=== PATIENT | male | born 1980 | race Caucasian/White ===

== ENCOUNTER 2016-05-24 01:34 | Emergency (ER) | payer OTHER ==
[~2016-05-24] VITALS: Ht 193 cm; Wt 130.5 kg
[~2016-05-24 01:34] MED LIST: ACYCLOVIR400 MG PO; ADVIL PM1 TABLET PO; ANAPROX DS550 M1 PO; AUGMENTIN875 MG PO; CIPRO500 MG PO; CLARITIN10 M3 PO; CLONAZEPAM1 MG PO; COLACE100 MG PO; DILAUDID2 MG PO; DILAUDID4 MG PO; ENDOCET 5-3251 EACH; ESCITALOPRAM OX20 MG PO; FENTANYL1 EAC5; FIORICET WI1 CAPSULE PO; FIORICET,ESG1 TABLET PO; FLEXERIL10 MG PO; FLOMAX0.4 MG PO; HYDROCHLOROTHIA25 MG PO; IBUPROFEN600 MG PO; INDOCIN25 MG PO; KEFLEX500 MG PO; LEXAPRO20 MG PO; LIDOCAINE20 MG/1 M5 PO; LODINE200 MG PO; LORTAB 5-325 M1 EACH PO; LYRICA100 MG PO; MEDROL DOSEPAK4 MG PO; MONTELUKAST SOD10 MG PO; MOTRIN IB200 MG; MOTRIN600 MG PO; MOTRIN800 MG PO; NAPROSYN500 MG PO; NAPROXEN500 MG PO; NORCO 5/3251 TABLET PO; PEN-VEE K,VEET500 MG PO; PERCOCET 10/1 TABLET PO; PERCOCET 5/31 TABLET PO; PHENERGAN25 MG PR; POTASSIUM CITR10 MEQ PO; PREDNISONE20 MG PO; PROMETHAZINE HC25 M1 PO; PYRIDIUM100 MG PO; SINGULAIR10 MG PO; SLEEP AID25 M1 PO; SOMA350 MG PO; TAMSULOSIN HCL0.4 MG PO; TORADOL10 MG PO; TYLENOL WITH C1 EACH PO; UROCIT-K15 MEQ PO; VICODIN 5-3001 EACH PO; ZOFRAN ODT4 MG PO; ZOFRAN ODT8 MG PO; ZOFRAN4 MG PO; ZOFRAN8 MG PO
[2016-05-24 01:54] LABS: HEMATOCRIT 44.4 % (38.0-50.0); MCH 29.3 PG (29.0-34.0); MCHC 34.5 G/DL (30.0-36.0); MCV 85.1 FL (86-99); MEAN PLAT.VOLUME 9.3 uM^3 (9.0-12.4); PLATELET COUNT 334 K/uL (156-360); RBC DIS.WIDTH-CV 14.6 % (11.8-14.6); RED BLOOD COUNT 5.22 M/uL (4.00-5.50); WHITE BLOOD COUNT 10.3 K/uL (4.1-10.2)
[2016-05-24 02:05] LABS: CHLORIDE 106 mEq/L (99-109); POTASSIUM 3.6 mEq/L (3.7-5.4); SODIUM 143 mEq/L (136-147)
[2016-05-24 02:07] LABS: GLUCOSE 112 mg/dL (70-99)
[2016-05-24 02:08] LABS: ANION GAP 12 MEQ/L (2-14)
[2016-05-24 02:11] LABS: GFR ESTIMATE (CALCULATED) > 59 mL/min/
[2016-05-24 02:12] LABS: UREA NITROGEN (BUN) 24 mg/dL (9-23)
[2016-05-24 02:27] LABS: ADD MIUA? YES; BILIRUBIN NEGATIVE; BLOOD NEGATIVE; COLOR YELLOW ((YELLOW)); GLUCOSE (STRIP) NEGATIVE; KETONES NEGATIVE; LEUKOCYTES NEGATIVE; NITRITE NEGATIVE; PROTEIN (STRIP) NEGATIVE; SPECIFIC GRAVITY 1.033 (1.000-1.030); UROBILINOGEN 0.2 MG/DL (0.2-1.0)
[2016-05-24 02:43] LABS: EPITHELIAL CELLS NONE SEEN; MUCUS NONE SEEN; RED BLOOD CELLS NONE SEEN /HPF (0-5); WHITE BLOOD CELLS 0-5 /HPF (0-5)
[2016-05-24 02:44] LABS: BACTERIA 1+; CASTS NONE SEEN /LPF; CRYSTALS NONE SEEN; UCUL ADDED? NO
[2016-05-24] MEDS ORDERED: ZOFRAN ODT4 MG PO (04:01)
[2016-05-24] MEDS ORDERED: PERCOCET 5/31 TABLET PO (04:01)
[2016-05-24 04:30] VITALS: BP 145/92
== END 2016-05-24 04:48 | disposition home or self-care (01) ==
LOC: EME 01:34
DX: N20.0 Calculus of kidney (principal); Z87.442 Personal history of urinary calculi; K21.9 Gastro-esophageal reflux disease without esophagitis; Z98.1 Arthrodesis status; Z88.8 Allergy status to other drugs, medicaments and biological substances; Z88.5 Allergy status to narcotic agent; F17.200 Nicotine dependence, unspecified, uncomplicated
CPT/HCPCS: 74176; 80048; 81003; 85027; 99281; 99284; J1885

== ENCOUNTER 2016-07-22 15:34 | Emergency (ER) | payer OTHER ==
[~2016-07-22] VITALS: Ht 193 cm; Wt 129.9 kg
[2016-07-22 16:18] LABS: HEMATOCRIT 46.1 % (38.0-50.0); MCH 29.3 PG (29.0-34.0); MCV 88.8 FL (86-99); MEAN PLAT.VOLUME 9.2 uM^3 (9.0-12.4); PLATELET COUNT 366 K/uL (156-360); RBC DIS.WIDTH-CV 12.9 % (11.8-14.6); RBC DIS.WIDTH-SD 42.3 % (39-53); RED BLOOD COUNT 5.19 M/uL (4.00-5.50); WHITE BLOOD COUNT 8.8 K/uL (4.1-10.2)
[2016-07-22 16:26] LABS: CHLORIDE 108 mEq/L (99-109); POTASSIUM 4.4 mEq/L (3.7-5.4); SODIUM 144 mEq/L (136-147)
[2016-07-22 16:28] LABS: GLUCOSE 93 mg/dL (70-99)
[2016-07-22 16:29] LABS: ANION GAP 10 MEQ/L (2-14)
[2016-07-22 16:30] LABS: TOTAL BILIRUBIN 0.4 mg/dL (0.0-1.0)
[2016-07-22 16:31] LABS: ALKALINE PHOSPHATASE 52 IU/L (3-129)
[2016-07-22 16:32] LABS: GFR ESTIMATE (CALCULATED) > 59 mL/min/
[2016-07-22 16:33] LABS: UREA NITROGEN (BUN) 18 mg/dL (9-23)
[2016-07-22 17:16] LABS: ADD MIUA? NO; BILIRUBIN NEGATIVE; BLOOD NEGATIVE; COLOR YELLOW ((YELLOW)); GLUCOSE (STRIP) NEGATIVE; KETONES NEGATIVE; LEUKOCYTES NEGATIVE; NITRITE NEGATIVE; PROTEIN (STRIP) NEGATIVE; UCUL ADDED? NO; UROBILINOGEN 0.2 MG/DL (0.2-1.0)
[2016-07-22] MEDS ORDERED: ZOFRAN4 MG PO (18:34)
[2016-07-22] MEDS ORDERED: TORADOL10 MG PO (18:34)
[2016-07-22 18:46] VITALS: BP 140/92
== END 2016-07-22 18:47 | disposition home or self-care (01) ==
LOC: EME 15:34
DX: R10.9 Unspecified abdominal pain (principal); R11.0 Nausea; R35.0 Frequency of micturition; Z87.442 Personal history of urinary calculi; F17.200 Nicotine dependence, unspecified, uncomplicated
CPT/HCPCS: 80053; 81003; 85027; 99281; 99284; J7030

== ENCOUNTER 2016-07-31 23:52 | Emergency (ER) | payer OTHER ==
[~2016-07-31] VITALS: Ht 193 cm; Wt 129.3 kg
[2016-08-01 00:23] LABS: HEMATOCRIT 45.8 % (38.0-50.0); MCH 29.1 PG (29.0-34.0); MCHC 33.2 G/DL (30.0-36.0); MCV 87.6 FL (86-99); MEAN PLAT.VOLUME 9.4 uM^3 (9.0-12.4); PLATELET COUNT 325 K/uL (156-360); RBC DIS.WIDTH-CV 12.3 % (11.8-14.6); RBC DIS.WIDTH-SD 39.6 % (39-53); RED BLOOD COUNT 5.23 M/uL (4.00-5.50); WHITE BLOOD COUNT 8.7 K/uL (4.1-10.2)
[2016-08-01 00:33] LABS: ADD MIUA? NO; BILIRUBIN NEGATIVE; BLOOD NEGATIVE; COLOR YELLOW ((YELLOW)); GLUCOSE (STRIP) NEGATIVE; KETONES NEGATIVE; LEUKOCYTES NEGATIVE; NITRITE NEGATIVE; PROTEIN (STRIP) NEGATIVE; SPECIFIC GRAVITY 1.012 (1.000-1.030); UCUL ADDED? NO; UROBILINOGEN 0.2 MG/DL (0.2-1.0)
[2016-08-01 00:37] LABS: CHLORIDE 105 mEq/L (99-109); POTASSIUM 3.5 mEq/L (3.7-5.4); SODIUM 140 mEq/L (136-147)
[2016-08-01 00:39] LABS: GLUCOSE 107 mg/dL (70-99)
[2016-08-01 00:40] LABS: ANION GAP 14 MEQ/L (2-14)
[2016-08-01 00:43] LABS: GFR ESTIMATE (CALCULATED) > 59 mL/min/
[2016-08-01 00:44] LABS: UREA NITROGEN (BUN) 19 mg/dL (9-23)
[2016-08-01 02:59] LABS: TOTAL BILIRUBIN 0.2 mg/dL (0.0-1.0)
[2016-08-01 03:00] LABS: ALKALINE PHOSPHATASE 56 IU/L (3-129)
[2016-08-01 03:03] LABS: DIRECT BILIRUBIN 0.1 mg/dL (0.0-0.3)
[2016-08-01 03:04] LABS: LIPASE 37 U/L (1.0-51.0)
[2016-08-01 03:15] VITALS: BP 163/93
== END 2016-08-01 03:17 | disposition home or self-care (01) ==
LOC: EME 23:52
DX: S33.5XXA Sprain of ligaments of lumbar spine, initial encounter (principal); K21.9 Gastro-esophageal reflux disease without esophagitis; Z87.442 Personal history of urinary calculi; Z98.1 Arthrodesis status; F17.200 Nicotine dependence, unspecified, uncomplicated
CPT/HCPCS: 74176; 80048; 80076; 81003; 83690; 85027; 99281; 99284

== ENCOUNTER 2016-09-29 20:39 | Emergency (ER) | payer OTHER ==
[~2016-09-29] VITALS: Ht 193 cm; Wt 128.2 kg
[2016-09-29 21:22] LABS: ADD MIUA? NO; BILIRUBIN NEGATIVE; BLOOD NEGATIVE; COLOR YELLOW ((YELLOW)); GLUCOSE (STRIP) NEGATIVE; KETONES NEGATIVE; LEUKOCYTES NEGATIVE; NITRITE NEGATIVE; PROTEIN (STRIP) NEGATIVE; SPECIFIC GRAVITY 1.015 (1.000-1.030); UCUL ADDED? NO; UROBILINOGEN 0.2 MG/DL (0.2-1.0)
[2016-09-29 21:30] LABS: HEMATOCRIT 43.9 % (38.0-50.0); MCH 29.2 PG (29.0-34.0); MCHC 33.9 G/DL (30.0-36.0); MCV 86.1 FL (86-99); MEAN PLAT.VOLUME 9.7 uM^3 (9.0-12.4); PLATELET COUNT 301 K/uL (156-360); RBC DIS.WIDTH-CV 13.1 % (11.8-14.6); RBC DIS.WIDTH-SD 40.4 % (39-53); WHITE BLOOD COUNT 8.1 K/uL (4.1-10.2)
[2016-09-29 21:40] LABS: CHLORIDE 111 mEq/L (99-109); POTASSIUM 3.7 mEq/L (3.7-5.4); SODIUM 144 mEq/L (136-147)
[2016-09-29 21:42] LABS: GLUCOSE 102 mg/dL (70-99)
[2016-09-29 21:43] LABS: ANION GAP 12 MEQ/L (2-14)
[2016-09-29 21:45] LABS: GFR ESTIMATE (CALCULATED) > 59 mL/min/
[2016-09-29 21:46] LABS: UREA NITROGEN (BUN) 18 mg/dL (9-23)
[2016-09-29] MEDS ORDERED: ZOFRAN ODT4 MG PO (22:05)
[2016-09-29] MEDS ORDERED: TORADOL10 MG PO (22:05)
[2016-09-29 22:37] VITALS: BP 164/90
== END 2016-09-29 22:38 | disposition home or self-care (01) ==
LOC: EME 20:39
DX: R10.32 Left lower quadrant pain (principal); M54.5 Low back pain; R30.0 Dysuria; R35.0 Frequency of micturition; R39.15 Urgency of urination; Z87.442 Personal history of urinary calculi; F17.200 Nicotine dependence, unspecified, uncomplicated
CPT/HCPCS: 74000; 80048; 81003; 85027; 99281; 99283; J1885

== ENCOUNTER 2016-10-07 09:47 | Emergency (ER) | payer OTHER ==
[~2016-10-07] VITALS: Ht 193 cm; Wt 127.4 kg
[2016-10-07 11:25] LABS: HEMATOCRIT 45.7 % (38.0-50.0); MCH 29.2 PG (29.0-34.0); MCHC 34.4 G/DL (30.0-36.0); MCV 85.1 FL (86-99); MEAN PLAT.VOLUME 9.5 uM^3 (9.0-12.4); PLATELET COUNT 330 K/uL (156-360); RBC DIS.WIDTH-CV 13.1 % (11.8-14.6); RBC DIS.WIDTH-SD 40.2 % (39-53); RED BLOOD COUNT 5.37 M/uL (4.00-5.50); WHITE BLOOD COUNT 10.2 K/uL (4.1-10.2)
[2016-10-07 11:33] LABS: CHLORIDE 107 mEq/L (99-109); POTASSIUM 4.6 mEq/L (3.7-5.4); SODIUM 141 mEq/L (136-147)
[2016-10-07 11:35] LABS: GLUCOSE 101 mg/dL (70-99)
[2016-10-07 11:36] LABS: ANION GAP 8 MEQ/L (2-14)
[2016-10-07 11:37] LABS: TOTAL BILIRUBIN 0.4 mg/dL (0.0-1.0)
[2016-10-07 11:39] LABS: ALKALINE PHOSPHATASE 59 IU/L (3-129); GFR ESTIMATE (CALCULATED) > 59 mL/min/
[2016-10-07 11:40] LABS: UREA NITROGEN (BUN) 15 mg/dL (9-23)
[2016-10-07] MEDS ORDERED: COLCHICINE0.6 M1 PO (12:25)
[2016-10-07] MEDS ORDERED: NAPROSYN500 MG PO (12:25)
[2016-10-07 13:22] VITALS: BP 137/74
== END 2016-10-07 13:24 | disposition home or self-care (01) ==
LOC: EME 09:47 → EXP 09:47
PROVIDERS: Nurse Practitioner Family
DX: M10.9 Gout, unspecified (principal); Z87.442 Personal history of urinary calculi
CPT/HCPCS: 73630; 80053; 85027; 99281; 99284

== ENCOUNTER 2016-11-27 11:21 | Emergency (ER) | payer OTHER ==
[~2016-11-27] VITALS: Ht 193 cm; Wt 129.6 kg
[~2016-11-27 11:21] MED LIST changes: +COLCHICINE0.6 M1 PO
[2016-11-27 13:46] LABS: HEMATOCRIT 44.1 % (38.0-50.0); MCH 28.9 PG (29.0-34.0); MEAN PLAT.VOLUME 9.3 uM^3 (9.0-12.4); PLATELET COUNT 320 K/uL (156-360); RBC DIS.WIDTH-CV 12.8 % (11.8-14.6); RBC DIS.WIDTH-SD 39.8 % (39-53); RED BLOOD COUNT 5.19 M/uL (4.00-5.50); WHITE BLOOD COUNT 8.3 K/uL (4.1-10.2)
[2016-11-27 14:04] LABS: CHLORIDE 105 mEq/L (99-109); SODIUM 142 mEq/L (136-147)
[2016-11-27 14:06] LABS: GLUCOSE 87 mg/dL (70-99)
[2016-11-27 14:08] LABS: ANION GAP 14 MEQ/L (2-14)
[2016-11-27 14:10] LABS: GFR ESTIMATE (CALCULATED) > 59 mL/min/
[2016-11-27 14:11] LABS: TROP-I INTERPRETATION NEGATIVE; TROPONIN-I < 0.01 ng/mL (0.0-0.30); UREA NITROGEN (BUN) 16 mg/dL (9-23)
[2016-11-27] MEDS ORDERED: FIORICET,ESG1 TABLET PO (14:48)
[2016-11-27 16:14] VITALS: BP 130/98
== END 2016-11-27 16:14 | disposition home or self-care (01) ==
LOC: EME 11:21 → EXP 11:21
PROVIDERS: Nurse Practitioner Family
DX: R51 Headache (principal); K21.9 Gastro-esophageal reflux disease without esophagitis; F17.200 Nicotine dependence, unspecified, uncomplicated; Z87.442 Personal history of urinary calculi
CPT/HCPCS: 70450; 80048; 84484; 85027; 93005; 99281; 99284

== ENCOUNTER 2016-12-17 11:08 | Emergency (ER) | payer OTHER ==
[~2016-12-17] VITALS: Ht 193 cm; Wt 126.0 kg
[2016-12-17] MEDS ORDERED: NORCO 5/3251 TABLET PO (12:49)
[2016-12-17 13:08] VITALS: BP 161/128
== END 2016-12-17 13:08 | disposition home or self-care (01) ==
LOC: EME 11:08
PROC: 3E0T3BZ Introduction of Anesthetic Agent into Peripheral Nerves and Plexi, Percutaneous Approach (ICD-10-PCS; principal; 2016-12-17)
DX: K02.9 Dental caries, unspecified (principal); K04.7 Periapical abscess without sinus
CPT/HCPCS: 99281; 99283

== ENCOUNTER 2016-12-30 12:14 | Emergency (ER) | payer OTHER ==
[~2016-12-30] VITALS: Ht 193 cm; Wt 126.8 kg
[2016-12-30 12:56] LABS: ADD MIUA? NO; BILIRUBIN NEGATIVE; BLOOD NEGATIVE; COLOR STRAW ((YELLOW)); GLUCOSE (STRIP) NEGATIVE; KETONES NEGATIVE; LEUKOCYTES NEGATIVE; NITRITE NEGATIVE; PROTEIN (STRIP) NEGATIVE; SPECIFIC GRAVITY 1.009 (1.000-1.030); UCUL ADDED? NO; UROBILINOGEN 0.2 MG/DL (0.2-1.0)
[2016-12-30 13:36] LABS: HEMATOCRIT 45.4 % (38.0-50.0); MCH 29.1 PG (29.0-34.0); MCHC 34.4 G/DL (30.0-36.0); MCV 84.5 FL (86-99); MEAN PLAT.VOLUME 9.2 uM^3 (9.0-12.4); PLATELET COUNT 324 K/uL (156-360); RBC DIS.WIDTH-CV 12.6 % (11.8-14.6); RBC DIS.WIDTH-SD 38.5 % (39-53); RED BLOOD COUNT 5.37 M/uL (4.00-5.50); WHITE BLOOD COUNT 8.3 K/uL (4.1-10.2)
[2016-12-30 14:03] LABS: CHLORIDE 106 mEq/L (99-109); POTASSIUM 3.8 mEq/L (3.7-5.4); SODIUM 142 mEq/L (136-147)
[2016-12-30 14:05] LABS: GLUCOSE 92 mg/dL (70-99)
[2016-12-30 14:07] LABS: ANION GAP 13 MEQ/L (2-14)
[2016-12-30 14:09] LABS: GFR ESTIMATE (CALCULATED) > 59 mL/min/
[2016-12-30 14:10] LABS: UREA NITROGEN (BUN) 17 mg/dL (9-23)
[2016-12-30] MEDS ORDERED: NORCO 5/3251 TABLET PO (14:31)
[2016-12-30] MEDS ORDERED: MOTRIN800 MG PO (14:31)
[2016-12-30] MEDS ORDERED: ZOFRAN ODT4 MG PO (14:34)
[2016-12-30] MEDS ORDERED: FLOMAX0.4 MG PO (14:41)
[2016-12-30 14:47] VITALS: BP 158/97
== END 2016-12-30 14:48 | disposition home or self-care (01) ==
LOC: EME 12:14
DX: N20.0 Calculus of kidney (principal); K21.9 Gastro-esophageal reflux disease without esophagitis; Z87.442 Personal history of urinary calculi; F17.200 Nicotine dependence, unspecified, uncomplicated
CPT/HCPCS: 74000; 80048; 81003; 85027; 99281; 99284; J1885

== ENCOUNTER 2017-02-19 12:35 | Emergency (ER) | payer OTHER ==
[~2017-02-19] VITALS: Ht 193 cm; Wt 128.6 kg
[2017-02-19] MEDS ORDERED: TORADOL10 MG PO (18:39)
[2017-02-19] MEDS ORDERED: PROMETHAZINE HC25 M1 PO (18:39)
[2017-02-19 19:17] VITALS: BP 164/103
== END 2017-02-19 19:18 | disposition home or self-care (01) ==
LOC: EME 12:35
DX: R51 Headache (principal); I10 Essential (primary) hypertension; K21.9 Gastro-esophageal reflux disease without esophagitis; F41.9 Anxiety disorder, unspecified; F32.9 Major depressive disorder, single episode, unspecified; F17.200 Nicotine dependence, unspecified, uncomplicated; Z98.1 Arthrodesis status
CPT/HCPCS: 70450; 99281; 99284; J1885; Q0169

== ENCOUNTER 2017-05-03 15:54 | Emergency (ER) | payer OTHER ==
[~2017-05-03] VITALS: Ht 193 cm; Wt 130.4 kg
[2017-05-03 16:50] LABS: APPEARANCE CLEAR ((CLEAR)); BILIRUBIN NEGATIVE; BLOOD NEGATIVE; COLOR YELLOW ((YELLOW)); GLUCOSE (STRIP) NEGATIVE; KETONES NEGATIVE; LEUKOCYTES NEGATIVE; NITRITE NEGATIVE; PROTEIN (STRIP) NEGATIVE; SPECIFIC GRAVITY 1.023 (1.000-1.030); UCUL ADDED? NO; UROBILINOGEN 0.2 MG/DL (0.2-1.0)
[2017-05-03 16:51] LABS: HEMATOCRIT 47.3 % (38.0-50.0); HEMOGLOBIN 16.4 G/DL (12.5-16.6); MCH 28.7 PG (29.0-34.0); MCHC 34.7 G/DL (30.0-36.0); MCV 82.7 FL (86-99); PLATELET COUNT 311 K/uL (156-360); RBC DIS.WIDTH-CV 12.8 % (11.8-14.6); RBC DIS.WIDTH-SD 38.4 % (39-53); RED BLOOD COUNT 5.72 M/uL (4.00-5.50); WHITE BLOOD COUNT 7.7 K/uL (4.1-10.2)
[2017-05-03 17:00] LABS: CHLORIDE 105 mEq/L (99-109); POTASSIUM 3.5 mEq/L (3.7-5.4); SODIUM 140 mEq/L (136-147)
[2017-05-03 17:01] LABS: GLUCOSE 95 mg/dL (70-99)
[2017-05-03 17:05] LABS: CREATININE 1.1 mg/dL (0.6-1.3); GFR ESTIMATE (CALCULATED) > 59 mL/min/ (58.99-99999)
[2017-05-03 17:06] LABS: UREA NITROGEN (BUN) 23 mg/dL (9-23)
[2017-05-03 18:14] LABS: ALBUMIN 4.8 g/dL (3.2-4.8)
[2017-05-03 18:17] LABS: TOTAL PROTEIN 7.7 g/dL (6.4-8.3)
[2017-05-03 18:19] LABS: TOTAL BILIRUBIN 0.4 mg/dL (0.0-1.0)
[2017-05-03 18:20] LABS: ALKALINE PHOSPHATASE 75 IU/L (3-129)
[2017-05-03 18:22] LABS: AST (GOT) 30 IU/L (2-34); DIRECT BILIRUBIN 0.1 mg/dL (0.0-0.3)
[2017-05-03 18:23] LABS: ALT (GPT) 43 IU/L (3-49); LIPASE 25 U/L (1.0-51.0)
[2017-05-03] MEDS ORDERED: INDOCIN50 MG PO (19:34)
[2017-05-03] MEDS ORDERED: NORCO 7.5/321 TABLET PO (19:34)
[2017-05-03 20:06] VITALS: BP 146/94
== END 2017-05-03 20:05 | disposition home or self-care (01) ==
LOC: RME 15:54 → EME 15:54 → RME 20:05
DX: N20.0 Calculus of kidney (principal); R03.0 Elevated blood-pressure reading, without diagnosis of hypertension; Z87.442 Personal history of urinary calculi; K21.9 Gastro-esophageal reflux disease without esophagitis; F41.9 Anxiety disorder, unspecified; F32.9 Major depressive disorder, single episode, unspecified; Z98.1 Arthrodesis status; F17.200 Nicotine dependence, unspecified, uncomplicated; Z88.5 Allergy status to narcotic agent; Z88.8 Allergy status to other drugs, medicaments and biological substances
CPT/HCPCS: 74000; 76770; 80048; 80076; 81003; 83690; 85027; 99281; 99284; J1885; J3010

== ENCOUNTER 2017-07-08 12:16 | Emergency (ER) | payer OTHER ==
[~2017-07-08] VITALS: Ht 193 cm; Wt 131.1 kg
[~2017-07-08 12:16] MED LIST changes: +INDOCIN50 MG PO; +NORCO 7.5/321 TABLET PO
[2017-07-08 13:13] LABS: HEMATOCRIT 45.5 % (38.0-50.0); HEMOGLOBIN 15.7 G/DL (12.5-16.6); MCH 28.8 PG (29.0-34.0); MCHC 34.5 G/DL (30.0-36.0); MCV 83.5 FL (86-99); PLATELET COUNT 299 K/uL (156-360); RBC DIS.WIDTH-CV 13.2 % (11.8-14.6); RBC DIS.WIDTH-SD 39.8 % (39-53); RED BLOOD COUNT 5.45 M/uL (4.00-5.50); WHITE BLOOD COUNT 6.9 K/uL (4.1-10.2)
[2017-07-08 13:21] LABS: CHLORIDE 110 mEq/L (99-109); POTASSIUM 3.6 mEq/L (3.7-5.4); SODIUM 143 mEq/L (136-147)
[2017-07-08 13:23] LABS: GLUCOSE 88 mg/dL (70-99)
[2017-07-08 13:24] LABS: APPEARANCE CLEAR ((CLEAR)); BILIRUBIN NEGATIVE; BLOOD LARGE; COLOR YELLOW ((YELLOW)); GLUCOSE (STRIP) NEGATIVE; KETONES NEGATIVE; LEUKOCYTES NEGATIVE; NITRITE NEGATIVE; PROTEIN (STRIP) 30; SPECIFIC GRAVITY 1.025 (1.000-1.030); UROBILINOGEN 0.2 MG/DL (0.2-1.0)
[2017-07-08 13:26] LABS: CREATININE 0.8 mg/dL (0.6-1.3); GFR ESTIMATE (CALCULATED) > 59 mL/min/ (58.99-99999)
[2017-07-08 13:27] LABS: UREA NITROGEN (BUN) 15 mg/dL (9-23)
[2017-07-08 13:36] LABS: BACTERIA NONE SEEN /HPF; EPITHELIAL CELLS RARE /HPF; HYALINE CASTS 0-5 /LPF; MUCUS TRACE /LPF; UCUL ADDED? NO; WHITE BLOOD CELLS 0-5 /HPF (0-5)
[2017-07-08] MEDS ORDERED: MOTRIN800 MG PO (15:20)
[2017-07-08] MEDS ORDERED: PERCOCET 5/31 TABLET PO (15:20)
[2017-07-08] MEDS ORDERED: ZOFRAN4 MG PO (15:20)
[2017-07-08] MEDS ORDERED: FLOMAX0.4 MG PO (15:31)
[2017-07-08 15:38] VITALS: BP 163/95
== END 2017-07-08 15:39 | disposition home or self-care (01) ==
LOC: EME 12:16
DX: N20.0 Calculus of kidney (principal); K76.0 Fatty (change of) liver, not elsewhere classified; N28.1 Cyst of kidney, acquired; Z87.442 Personal history of urinary calculi; F17.200 Nicotine dependence, unspecified, uncomplicated
CPT/HCPCS: 74176; 80048; 81003; 85027; 99281; 99284; J1885; J2405; J7030

== ENCOUNTER 2017-08-22 16:20 | Emergency (ER) | payer OTHER ==
[~2017-08-22] VITALS: Ht 193 cm; Wt 131.0 kg
[2017-08-22 17:41] LABS: HEMATOCRIT 43.8 % (38.0-50.0); HEMOGLOBIN 15.4 G/DL (12.5-16.6); MCH 29.2 PG (29.0-34.0); MCHC 35.2 G/DL (30.0-36.0); PLATELET COUNT 308 K/uL (156-360); RBC DIS.WIDTH-SD 39.1 % (39-53); RED BLOOD COUNT 5.28 M/uL (4.00-5.50); WHITE BLOOD COUNT 11.8 K/uL (4.1-10.2)
[2017-08-22 17:49] LABS: ALBUMIN 4.7 g/dL (3.2-4.8)
[2017-08-22 17:50] LABS: CHLORIDE 103 mEq/L (99-109); POTASSIUM 3.6 mEq/L (3.7-5.4); SODIUM 141 mEq/L (136-147)
[2017-08-22 17:52] LABS: GLUCOSE 93 mg/dL (70-99); TOTAL PROTEIN 7.5 g/dL (6.4-8.3)
[2017-08-22 17:54] LABS: TOTAL BILIRUBIN 0.5 mg/dL (0.0-1.0)
[2017-08-22 17:55] LABS: ALKALINE PHOSPHATASE 74 IU/L (3-129)
[2017-08-22 17:56] LABS: CREATININE 0.9 mg/dL (0.6-1.3); GFR ESTIMATE (CALCULATED) > 59 mL/min/ (58.99-99999)
[2017-08-22 17:57] LABS: AST (GOT) 21 IU/L (2-34); UREA NITROGEN (BUN) 11 mg/dL (9-23)
[2017-08-22 17:59] LABS: ALT (GPT) 31 IU/L (3-49)
[2017-08-22] MEDS ORDERED: NORCO 5/3251 TABLET PO (19:45)
[2017-08-22] MEDS ORDERED: PEN-VEE K,VEET500 MG PO (19:45)
[2017-08-22 20:14] VITALS: BP 161/106
== END 2017-08-22 20:15 | disposition home or self-care (01) ==
LOC: RME 16:20 → EME 16:20 → RME 20:15
DX: K04.7 Periapical abscess without sinus (principal); F17.200 Nicotine dependence, unspecified, uncomplicated
CPT/HCPCS: 80053; 85027; 99281; 99284

== ENCOUNTER 2017-09-09 14:23 | Emergency (ER) | payer OTHER ==
[~2017-09-09] VITALS: Ht 193 cm; Wt 129.6 kg
[2017-09-09 14:50] LABS: HEMATOCRIT 45.1 % (38.0-50.0); HEMOGLOBIN 15.6 G/DL (12.5-16.6); MCH 29.2 PG (29.0-34.0); MCHC 34.6 G/DL (30.0-36.0); MCV 84.5 FL (86-99); PLATELET COUNT 350 K/uL (156-360); RBC DIS.WIDTH-SD 39.8 % (39-53); RED BLOOD COUNT 5.34 M/uL (4.00-5.50); WHITE BLOOD COUNT 8.1 K/uL (4.1-10.2)
[2017-09-09 14:56] LABS: CHLORIDE 105 mEq/L (99-109); POTASSIUM 3.9 mEq/L (3.7-5.4); SODIUM 141 mEq/L (136-147)
[2017-09-09 14:57] LABS: GLUCOSE 107 mg/dL (70-99)
[2017-09-09 15:01] LABS: GFR ESTIMATE (CALCULATED) > 59 mL/min/ (58.99-99999)
[2017-09-09 15:02] LABS: UREA NITROGEN (BUN) 18 mg/dL (9-23)
[2017-09-09 15:15] LABS: APPEARANCE CLEAR ((CLEAR)); BILIRUBIN NEGATIVE; BLOOD LARGE; COLOR YELLOW ((YELLOW)); GLUCOSE (STRIP) NEGATIVE; KETONES NEGATIVE; LEUKOCYTES NEGATIVE; NITRITE NEGATIVE; PROTEIN (STRIP) 30; SPECIFIC GRAVITY 1.023 (1.000-1.030); UROBILINOGEN 0.2 MG/DL (0.2-1.0)
[2017-09-09 15:20] LABS: BACTERIA NONE SEEN /HPF; EPITHELIAL CELLS NONE SEEN /HPF; MUCUS TRACE /LPF; RED BLOOD CELLS 0-5 /HPF (0-5); UCUL ADDED? NO; WHITE BLOOD CELLS 0-5 /HPF (0-5)
[2017-09-09 15:25] LABS: ALBUMIN 4.7 g/dL (3.2-4.8)
[2017-09-09 15:28] LABS: TOTAL PROTEIN 7.2 g/dL (6.4-8.3)
[2017-09-09 15:29] LABS: TOTAL BILIRUBIN 0.4 mg/dL (0.0-1.0)
[2017-09-09 15:30] LABS: ALKALINE PHOSPHATASE 77 IU/L (3-129)
[2017-09-09 15:33] LABS: AST (GOT) 21 IU/L (2-34); DIRECT BILIRUBIN 0.1 mg/dL (0.0-0.3)
[2017-09-09 15:34] LABS: ALT (GPT) 31 IU/L (3-49); LIPASE 34 U/L (1.0-51.0)
[2017-09-09 17:36] VITALS: BP 148/99
== END 2017-09-09 17:36 | disposition home or self-care (01) ==
LOC: EME 14:23 → EXP 14:23
DX: N20.0 Calculus of kidney (principal); R10.31 Right lower quadrant pain; R31.9 Hematuria, unspecified; Z87.442 Personal history of urinary calculi; K76.0 Fatty (change of) liver, not elsewhere classified; F41.9 Anxiety disorder, unspecified; F32.9 Major depressive disorder, single episode, unspecified; K21.9 Gastro-esophageal reflux disease without esophagitis; F17.200 Nicotine dependence, unspecified, uncomplicated; Z88.5 Allergy status to narcotic agent; Z98.1 Arthrodesis status
CPT/HCPCS: 74176; 80048; 80076; 81003; 83690; 85027; 99281; 99284; J2405; J3010; J7030

== ENCOUNTER 2017-09-26 20:41 | Emergency (ER) | payer OTHER ==
[~2017-09-26] VITALS: Ht 193 cm; Wt 131.7 kg
[2017-09-26 21:16] LABS: HEMATOCRIT 42.8 % (38.0-50.0); HEMOGLOBIN 15.3 G/DL (12.5-16.6); MCH 29.8 PG (29.0-34.0); MCHC 35.7 G/DL (30.0-36.0); MCV 83.4 FL (86-99); PLATELET COUNT 308 K/uL (156-360); RBC DIS.WIDTH-SD 39.5 % (39-53); RED BLOOD COUNT 5.13 M/uL (4.00-5.50)
[2017-09-26 21:27] LABS: APPEARANCE CLEAR ((CLEAR)); BILIRUBIN NEGATIVE; BLOOD SMALL; COLOR YELLOW ((YELLOW)); GLUCOSE (STRIP) NEGATIVE; KETONES NEGATIVE; LEUKOCYTES NEGATIVE; NITRITE NEGATIVE; PROTEIN (STRIP) NEGATIVE; SPECIFIC GRAVITY 1.018 (1.000-1.030); UROBILINOGEN 0.2 MG/DL (0.2-1.0)
[2017-09-26 21:27] LABS: ALBUMIN 4.2 g/dL (3.2-4.8); CHLORIDE 107 mEq/L (99-109); SODIUM 140 mEq/L (136-147)
[2017-09-26 21:29] LABS: GLUCOSE 110 mg/dL (70-99)
[2017-09-26 21:31] LABS: TOTAL BILIRUBIN 0.2 mg/dL (0.0-1.0)
[2017-09-26 21:33] LABS: ALKALINE PHOSPHATASE 67 IU/L (3-129); CREATININE 0.9 mg/dL (0.6-1.3); GFR ESTIMATE (CALCULATED) > 59 mL/min/ (58.99-99999)
[2017-09-26 21:34] LABS: BACTERIA NONE SEEN /HPF; EPITHELIAL CELLS NONE SEEN /HPF; MUCUS TRACE /LPF; UCUL ADDED? NO; WHITE BLOOD CELLS 0-5 /HPF (0-5)
[2017-09-26 21:34] LABS: UREA NITROGEN (BUN) 17 mg/dL (9-23)
[2017-09-26 21:35] LABS: AST (GOT) 24 IU/L (2-34)
[2017-09-26 21:36] LABS: ALT (GPT) 30 IU/L (3-49)
[2017-09-27 01:44] VITALS: BP 135/85
== END 2017-09-27 01:47 | disposition home or self-care (01) ==
LOC: EME 20:41 → RME 20:41
DX: N20.0 Calculus of kidney (principal); K76.0 Fatty (change of) liver, not elsewhere classified; Z87.442 Personal history of urinary calculi; F32.9 Major depressive disorder, single episode, unspecified; K21.9 Gastro-esophageal reflux disease without esophagitis; F41.9 Anxiety disorder, unspecified; Z88.5 Allergy status to narcotic agent; F17.200 Nicotine dependence, unspecified, uncomplicated
CPT/HCPCS: 74176; 80053; 81003; 85027; 99281; 99284; J1885

== ENCOUNTER 2017-10-14 10:11 | Emergency (ER) | payer OTHER ==
[~2017-10-14] VITALS: Ht 193 cm; Wt 130.4 kg
[2017-10-14] MEDS ORDERED: MOTRIN800 MG PO (13:41)
[2017-10-14] MEDS ORDERED: HYDROCHLOROTH12.5 M3 PO (13:52)
[2017-10-14 14:12] VITALS: BP 162/107
== END 2017-10-14 14:14 | disposition home or self-care (01) ==
LOC: EME 10:11
DX: M79.605 Pain in left leg (principal); I10 Essential (primary) hypertension; M79.672 Pain in left foot; M79.89 Other specified soft tissue disorders; Z87.442 Personal history of urinary calculi; F17.200 Nicotine dependence, unspecified, uncomplicated
CPT/HCPCS: 93971; 99281; 99283

== ENCOUNTER 2017-11-01 10:44 | Emergency (ER) | payer OTHER ==
[~2017-11-01] VITALS: Ht 188 cm; Wt 130.0 kg
[~2017-11-01 10:44] MED LIST changes: +HYDROCHLOROTH12.5 M3 PO
[2017-11-01] MEDS ORDERED: VOLTAREN 1% GE100 GM TP (11:57)
[2017-11-01] MEDS ORDERED: SKELAXIN800 MG PO (11:57)
[2017-11-01 12:21] VITALS: BP 159/112
== END 2017-11-01 12:22 | disposition home or self-care (01) ==
LOC: EME 10:44
DX: M54.32 Sciatica, left side (principal); M25.552 Pain in left hip; G89.29 Other chronic pain; F17.210 Nicotine dependence, cigarettes, uncomplicated; Z88.5 Allergy status to narcotic agent; Z87.442 Personal history of urinary calculi
CPT/HCPCS: 99281; 99283; J1885

== ENCOUNTER 2017-11-21 12:30 | Emergency (ER) | payer OTHER ==
[~2017-11-21] VITALS: Ht 193 cm; Wt 131.8 kg
[~2017-11-21 12:30] MED LIST changes: +SKELAXIN800 MG PO; +VOLTAREN 1% GE100 GM TP
[2017-11-21 12:53] LABS: APPEARANCE CLEAR ((CLEAR)); BILIRUBIN NEGATIVE; BLOOD NEGATIVE; COLOR COLORLESS ((YELLOW)); GLUCOSE (STRIP) NEGATIVE; KETONES NEGATIVE; LEUKOCYTES NEGATIVE; NITRITE NEGATIVE; PROTEIN (STRIP) NEGATIVE; SPECIFIC GRAVITY 1.003 (1.000-1.030); UCUL ADDED? NO; UROBILINOGEN 0.2 MG/DL (0.2-1.0)
[2017-11-21 13:11] LABS: HEMOGLOBIN 15.1 G/DL (12.5-16.6); MCH 29.3 PG (29.0-34.0); MCHC 35.1 G/DL (30.0-36.0); MCV 83.5 FL (86-99); PLATELET COUNT 288 K/uL (156-360); RBC DIS.WIDTH-CV 13.1 % (11.8-14.6); RBC DIS.WIDTH-SD 40.1 % (39-53); RED BLOOD COUNT 5.15 M/uL (4.00-5.50); WHITE BLOOD COUNT 6.7 K/uL (4.1-10.2)
[2017-11-21 13:14] LABS: CHLORIDE 105 mEq/L (99-109); POTASSIUM 4.1 mEq/L (3.7-5.4); SODIUM 141 mEq/L (136-147)
[2017-11-21 13:15] LABS: GLUCOSE 100 mg/dL (70-99)
[2017-11-21 13:19] LABS: CREATININE 0.9 mg/dL (0.6-1.3); GFR ESTIMATE (CALCULATED) > 59 mL/min/ (58.99-99999)
[2017-11-21 13:20] LABS: UREA NITROGEN (BUN) 14 mg/dL (9-23)
[2017-11-21] MEDS ORDERED: NORCO 5/3251 TABLET PO (14:53)
[2017-11-21 15:22] VITALS: BP 166/95
== END 2017-11-21 15:24 | disposition home or self-care (01) ==
LOC: EME 12:30
DX: R10.9 Unspecified abdominal pain (principal); Z87.442 Personal history of urinary calculi; F32.9 Major depressive disorder, single episode, unspecified; K21.9 Gastro-esophageal reflux disease without esophagitis; F17.200 Nicotine dependence, unspecified, uncomplicated; Z88.5 Allergy status to narcotic agent
CPT/HCPCS: 74018; 76770; 80048; 81003; 85027; 99281; 99285; J1885

== ENCOUNTER 2017-12-12 11:06 | Emergency (ER) | payer SELFPAY ==
[~2017-12-12] VITALS: Ht 193 cm; Wt 130.0 kg
[2017-12-12 11:46] LABS: HEMATOCRIT 45.8 % (38.0-50.0); MCHC 34.9 G/DL (30.0-36.0); MCV 83.1 FL (86-99); RBC DIS.WIDTH-CV 12.9 % (11.8-14.6); RBC DIS.WIDTH-SD 38.9 % (39-53); RED BLOOD COUNT 5.51 M/uL (4.00-5.50); WHITE BLOOD COUNT 6.8 K/uL (4.1-10.2)
[2017-12-12 12:03] LABS: APPEARANCE CLEAR ((CLEAR)); BILIRUBIN NEGATIVE; BLOOD LARGE; COLOR YELLOW ((YELLOW)); GLUCOSE (STRIP) NEGATIVE; KETONES NEGATIVE; LEUKOCYTES TRACE; NITRITE NEGATIVE; PROTEIN (STRIP) 30; SPECIFIC GRAVITY 1.026 (1.000-1.030); UROBILINOGEN 0.2 MG/DL (0.2-1.0)
[2017-12-12 12:05] LABS: ALBUMIN 5.2 G/DL (3.2-4.8); CHLORIDE 105 MEQ/L (99-109); POTASSIUM 4.1 MEQ/L (3.7-5.4); SODIUM 141 MEQ/L (136-147); TOTAL BILIRUBIN 0.4 MG/DL (0.0-1.0)
[2017-12-12 12:06] LABS: BACTERIA NONE SEEN /HPF; EPITHELIAL CELLS RARE /HPF; MUCUS TRACE /LPF; RED BLOOD CELLS 0-5 /HPF (0-5); UCUL ADDED? NO; WHITE BLOOD CELLS 0-5 /HPF (0-5)
[2017-12-12 12:10] LABS: ALKALINE PHOSPHATASE 56 IU/L (3-129); ALT (GPT) 21 IU/L (3-49); AST (GOT) 20 IU/L (2-34); CREATININE 0.8 MG/DL (0.6-1.3); GFR ESTIMATE (CALCULATED) > 59 mL/min/ (58.99-99999); GLUCOSE 102 mg/dL (70-99); TOTAL PROTEIN 7.1 G/DL (6.4-8.3); UREA NITROGEN (BUN) 17 mg/dL (9-23)
[2017-12-12 12:24] LABS: PLAT.SUFFICIENCY ADEQUATE; PLATELET COUNT UNABLE TO REPORT K/uL (156-360)
[2017-12-12] MEDS ORDERED: ROXICODONE5 MG PO (13:47)
[2017-12-12 14:27] VITALS: BP 150/93
== END 2017-12-12 14:31 | disposition home or self-care (01) ==
LOC: EME 11:06
DX: N20.0 Calculus of kidney (principal); K21.9 Gastro-esophageal reflux disease without esophagitis; F32.9 Major depressive disorder, single episode, unspecified; F17.200 Nicotine dependence, unspecified, uncomplicated; Z87.442 Personal history of urinary calculi; Z98.1 Arthrodesis status; Z88.5 Allergy status to narcotic agent; Z88.8 Allergy status to other drugs, medicaments and biological substances
CPT/HCPCS: 74176; 80053; 81003; 85027; 99281; 99284; J1885; J7030